=== PATIENT | male | born 1945 | race Caucasian/White ===

== ENCOUNTER 2022-01-09 10:30 | Inpatient (IN) | payer OTHER ==
[2022-01-09] MEDS ORDERED: LEVALBUTEROL 1.25 MG/3 ML NEB ONE (10:48)
[2022-01-09] MEDS ORDERED: METOPROLOL TARTRATE 5 MG/5 ML INJ IV ONE (10:49)
[2022-01-09 11:00] LABS: Absolute Lymphocytes (CBC) 0.9 K/uL (0.7-4.9); Hematocrit 38.6 % (39.6-49.0); Lymphocytes % 11.2 % (15.3-44.8); MCV 89.6 fL (80-100); MPV 8.6 fL (7.6-11.3); RBC Red Blood Cell Count 4.31 M/uL (4.33-5.43)
[2022-01-09 11:18] LABS: Potassium 4.5 mmol/L (3.5-5.1); Troponin High Sensitivity 25.3 pg/mL (<58.9)
[2022-01-09] MEDS ORDERED: HYDRALAZINE HCL 20 MG/ML VIAL ONE ×2 (11:22→12:34)
--- NOTE | 2022-01-09 12:11 | RAD REPORT ---
EXAM DESCRIPTION: [facility] Single View01/09/2022 11:00 am CLINICAL HISTORY: Shortness of breath COMPARISON: none FINDINGS: The lungs appear clear of acute infiltrate. The heart is borderline enlarged IMPRESSION: No acute abnormalities displayed
--- NOTE | 2022-01-09 13:17 | ER ---
Nurse's Notes [facility] Name: Jignesh Cortes Age: 76 yrs Sex: Male : 1945 Arrival Date: 01/09/2022 Time: 10:32 Bed 2 Private MD: Diagnosis: Hypertensive heart disease without heart failure;Shortness of breath;Tachycardia, unspecified;Dyspnea;Tachypnea, not elsewhere classified Presentation: 01/09 10:30 Chief complaint: EMS states: toned out to [place] clinic for hypertension and SOB that has tp1 been ongoing for 3 weeks. Reports new onset of AFIB. BP 222/146, HR 90-110. reports PT has not seen a doctor in a year. 10:30 Coronavirus screen: Vaccine status: Patient reports being unvaccinated. Ebola Screen: tp1 Patient negative for fever greater than or equal to 101.5 degrees Fahrenheit, and additional compatible Ebola Virus Disease symptoms Patient denies exposure to infectious person. Patient denies travel to an Ebola-affected area in the 21 days before illness onset. Initial Sepsis Screen: Does the patient meet any 2 criteria? RR > 20 per min. HR > 90 bpm. Yes Does the patient have a suspected source of infection? No. Patient's initial sepsis screen is negative. Risk Assessment: Do you want to hurt yourself or someone else? Patient reports no desire to harm self or others. Onset of symptoms was January 09, 2022. 10:30 Method Of Arrival: EMS: [facility] tp1 10:30 Acuity: LELO 2 tp1 Triage Assessment: 10:30 General: Appears in no apparent distress. comfortable, Behavior is calm, cooperative. tp1 Pain: Denies pain. EENT: No signs and/or symptoms were reported regarding the EENT system. Neuro: Level of Consciousness is awake, alert, obeys commands, Oriented to person, place, time, situation. Cardiovascular: Reports headache, feeling clammy Denies chest pain, blurred vision Patient's skin is warm and dry. Respiratory: Reports shortness of breath at rest Airway is patent Respiratory effort is even, unlabored, Respiratory pattern is regular, symmetrical, Onset: The symptoms/episode began/occurred the past 3 weeks. GI: Reports diarrhea, Patient currently denies constipation, nausea, vomiting. : No signs and/or symptoms were reported regarding the genitourinary system. Derm: Skin is pink, warm \T\ dry. Rash noted that is red, on right ankle. Musculoskeletal: Circulation, motion, and sensation intact. Historical: - Allergies: 11:23 PENICILLINS; tp1 - Home Meds: 11:23 Lisinopril Oral [Active]; Atenolol Oral [Active]; Procardia Oral [Active]; tp1 11:48 carboxymethylcellulose-citric acid oral [Active]; tp1 11:48 Aspirin Oral [Active]; tp1 - PMHx: 11:23 Hypertensive disorder; tp1 11:43 BPH; Depressive disorder; hypokalemia; psoriasis; Sleep apnea; tp1 11:45 ADHD; erectile dysfunction; insomnia; actinic keratosis; rhythmic movement disorder; tp1 hyperlipidemia; - Immunization history:: Client reports having NOT received the Covid vaccine. - Social history:: Smoking status: Patient denies any tobacco usage or history of. Screenin:33 Abuse screen: Denies threats or abuse. Denies injuries from another. Nutritional tp1 screening: No deficits noted. Tuberculosis screening: No symptoms or risk factors identified. Fall Risk No fall in past 12 months (0 pts). No secondary diagnosis (0 pts). IV access (20 points). Ambulatory Aid- None/Bed Rest/Nurse Assist (0 pts). Gait- Normal/Bed Rest/Wheelchair (0 pts) Mental Status- Oriented to own ability (0 pts). Total Puri Fall Scale indicates No Risk (0-24 pts). Assessment: 10:30 General: see triage notes. tp1 11:30 Reassessment: Patient appears in no apparent distress at this time. No changes from tp1 previously documented assessment. Patient is alert, oriented x 3, equal unlabored respirations, skin warm/dry/pink. Patient denies pain at this time. 12:30 Reassessment: Patient appears in no apparent distress at this time. No changes from tp1 previously documented assessment. Patient is alert, oriented x 3, equal unlabored respirations, skin warm/dry/pink. Patient denies pain at this time. 13:30 Reassessment: Patient appears in no apparent distress at this time. No changes from tp1 previously documented assessment. Patient is alert, oriented x 3, equal unlabored respirations, skin warm/dry/pink. 13:53 Reassessment: ambulated PT in room. PT became clammy, SOB, and nauseated, with tp1 increased respirations. O2 dropped to 93%, HR 125. provider notified. 14:53 Reassessment: Patient appears in no apparent distress at this time. No changes from tp1 previously documented assessment. Patient is alert, oriented x 3, equal unlabored respirations, skin warm/dry/pink. Patient denies pain at this time. 15:53 Reassessment: Patient appears in no apparent distress at this time. No changes from tp1 previously documented assessment. Patient is alert, oriented x 3, equal unlabored respirations, skin warm/dry/pink. resting in bed Patient denies pain at this time. 16:53 Reassessment: Patient appears in no apparent distress at this time. No changes from tp1 previously documented assessment. Patient is alert, oriented x 3, equal unlabored respirations, skin warm/dry/pink. denies chest pain Patient denies pain at this time. 17:39 Reassessment: attempted to give report. tp1 18:14 Reassessment: attempted to give report. no answer. tp1 Vital Signs: 10:30 BP 194 / 139; Pulse 95; Resp 25; Temp 98.9; Pulse Ox 99% on R/A; Weight 87.54 kg; tp1 Height 5 ft. 6 in. (167.64 cm); 10:49 BP 240 / 107; Pulse 92; Resp 18; Pulse Ox 99% on R/A; tp1 10:55 BP 204 / 102; Pulse 92; tp1 11:00 BP 208 / 109; Pulse 83; tp1 11:05 BP 228 / 99; Pulse 82; tp1 11:10 BP 209 / 102; Pulse 82; tp1 11:15 BP 209 / 90; Pulse 80; tp1 11:25 BP 149 / 94; Pulse 89; tp1 11:37 BP 174 / 106; Pulse 105; tp1 11:59 BP 207 / 90; Pulse 97; Resp 18; Pulse Ox 99% on R/A; tp1 12:33 BP 193 / 108; Pulse 95 RA; tp1 12:33 BP 179 / 113 LA; tp1 12:38 BP 141 / 89; Pulse 83; tp1 12:51 BP 156 / 78; Pulse 100; tp1 13:30 BP 125 / 108; Pulse 105 RA; tp1 13:33 BP 124 / 94 RA; Pulse 105; tp1 13:39 BP 151 / 90; Pulse 106 LA; tp1 13:57 BP 186 / 99; Pulse 121; Resp 26; Pulse Ox 96% on R/A; tp1 14:00 BP 154 / 100; Pulse 108; Pulse Ox 98% on R/A; tp1 14:45 BP 170 / 107; Pulse 105; Resp 21; Pulse Ox 96% on R/A; tp1 14:53 BP 138 / 87; Pulse 121; Resp 20; Temp 99.0(O); Pulse Ox 97% on R/A; tp1 15:15 BP 169 / 107; Pulse 113; Resp 20; Pulse Ox 96% on R/A; tp1 16:15 BP 164 / 99; Pulse 120; Resp 20; Pulse Ox 96% on R/A; tp1 16:45 BP 200 / 169; Pulse 103; Resp 20; Pulse Ox 95% on R/A; tp1 17:15 BP 172 / 110; Pulse 117; Resp 20; Pulse Ox 95% on R/A; tp1 18:21 BP 159 / 105; Pulse 104; Resp 22; Pulse Ox 96% on R/A; tp1 10:30 Body Mass Index 31.15 (87.54 kg, 167.64 cm) tp1 ED Course: 10:30 Arm band placed on. tp1 10:30 Patient has correct armband on for positive identification. Bed in low position. Call tp1 light in reach. Side rails up X2. Client placed on continuous cardiac and pulse oximetry monitoring. NIBP monitoring applied. 10:32 Patient arrived in ED. eb 10:35 Tyler Langston MD is Attending Physician. kdr 10:46 Eufemia Smith, FREDERIC is Primary Nurse. tp1 10:46 Maintain EMS IV. Dressing intact. Good blood return noted. Site clean \T\ dry. Gauge \T\ ap 3 site: 22g right forearm. 10:47 EKG done, by ED staff, reviewed by Tyler Langston MD. ap3 10:47 Initial lab(s) drawn, by ED staff. tp1 11:02 XRAY Chest (1 view) In Process Unspecified. EDMS 11:23 Triage completed. tp1 14:07 transfer initiated with [facility]. eb 14:34 CT Chest For PE Angio In Process Unspecified. EDMS 14:37 Inserted saline lock: 22 gauge in right antecubital area, using aseptic technique. tp1 ,using aseptic technique. completed by Julia check grader. 14:45 COVID swab sent to lab. tp1 14:52 per Mee from the [facility]/ they will have to decline the patient in eb transfer due to the facility being at capacity/. 16:29 Fede Hooper MD is Hospitalizing Provider. kdr 17:38 No provider procedures requiring assistance completed. tp1 19:03 Primary Nurse role handed off by Eufemia Smith RN tw5 19:03 Eufemia Powell is Primary Nurse. tw5 20:00 Patient admitted, IV remains in place. tw5 Administered Medications: 10:48 Drug: Xopenex (levalbuterol) (3) 1.25 mg Route: Inhalation; tp1 11:15 Follow up: Response: Marked relief of symptoms tp1 10:49 Drug: Lopressor (metoprolol) 5 mg Route: IVP; Site: right antecubital; tp1 10:55 Drug: Lopressor (metoprolol) 5 mg Route: IVP; Site: right antecubital; tp1 11:00 Drug: Lopressor (metoprolol) 5 mg Route: IVP; Site: right antecubital; tp1 11:40 Follow up: Response: Blood pressure is unchanged tp1 11:15 Drug: hydrALAZINE 10 mg Route: IVP; Site: right antecubital; tp1 11:40 Follow up: Response: Blood pressure is unchanged tp1 12:35 Drug: hydrALAZINE 20 mg Route: IVP; Site: right antecubital; tp1 13:41 Follow up: Response: Blood pressure is lowered tp1 16:39 Drug: Lopressor (metoprolol TARTRATE) 50 mg Route: PO; tp1 17:38 Follow up: Response: Blood pressure is lowered tp1 Medication: 17:38 VIS not applicable for this client. tp1 Outcome: 13:17 Discharge ordered by . kdr 14:02 ER care complete, transfer ordered by . kdr 16:31 Decision to Hospitalize by Provider. kdr 19:58 Admitted to Med/surg room 412, Report called to attempted to call report. Spoke to tw5 chastity she stated she would find out from charge who was getting the patient. They stated they would call back, all nurses are busy 19:58 Condition: stable 19:58 Instructed on the need for admit. 20:06 Admitted to Med/surg Report called to Gave report to Melissa lock 20:22 Patient left the ED. tw5 Signatures: Dispatcher [facility] Tyler Ceron MD MD kdr Prokisch, Amanda, RN RN ap3 Dianne Gupta Tiffany tw5 Eufemia Smith, RN RN tp1 Corrections: (The following items were deleted from the chart) 13:56 13:53 Reassessment: ambulated PT in room. PT became clammy, SOB, and nauseated, with tp1 increased respirations. provider notified. tp1 20:01 19:58 Admitted to Med/surg room 412, Report called to attempted to call report. Spoke tw5 to [facility] she stated she would find out from charge who was getting the patient. Placed on hold for 4 min. tw5
--- NOTE | 2022-01-09 13:17 | EDPHYS ---
Physician Documentation [facility] Name: Jignesh Cortes Age: 76 yrs Sex: Male : 1945 Arrival Date: 01/09/2022 Time: 10:32 Bed 2 Private MD: ED Physician Tyler Langston HPI: 01/09 10:41 This 76 yrs old Male presents to ER via Unassigned with complaints of Hypertensive kdr heart disease poorly controlled. 10:41 Patient states that he went to the [facility] this morning because he was having kdr difficulty breathing for the last 3 weeks. When they assessed him, they found that his vital signs were abnormal, specifically he was hypertensive with a systolic blood pressure in the 220s. He was subsequently sent to the ED for evaluation. On arrival in the ED, his systolic blood pressure is 194. He denies any chest pain. He has been short of breath for about 3 to weeks but has had no other symptoms. He is otherwise asymptomatic with regard to his pressure. He states is that he has been taking his medications as directed except for his Procardia which she has been out of for a few weeks. Patient is none toxic appearing and does not require acute intervention.. Onset: The symptoms/episode began/occurred gradually, at an unknown time. Severity of symptoms: At their worst the symptoms were moderate severe in the emergency department the symptoms are unchanged Pain is currently a 0 / 10. The patient has not experienced similar symptoms in the past. The patient has been recently seen by a physician: the patient's primary care provider. Historical: - Allergies: 11:23 PENICILLINS; tp1 - Home Meds: 11:23 Lisinopril Oral [Active]; Atenolol Oral [Active]; Procardia Oral [Active]; tp1 11:48 carboxymethylcellulose-citric acid oral [Active]; tp1 11:48 Aspirin Oral [Active]; tp1 - PMHx: 11:23 Hypertensive disorder; tp1 11:43 BPH; Depressive disorder; hypokalemia; psoriasis; Sleep apnea; tp1 11:45 ADHD; erectile dysfunction; insomnia; actinic keratosis; rhythmic movement disorder; tp1 hyperlipidemia; - Immunization history:: Client reports having NOT received the Covid vaccine. - Social history:: Smoking status: Patient denies any tobacco usage or history of. ROS: 10:41 Constitutional: Negative for fever, chills, and weight loss, Eyes: Negative for injury, kdr pain, redness, and discharge, ENT: Negative for injury, pain, and discharge, Neck: Negative for injury, pain, and swelling, Cardiovascular: Negative for chest pain, palpitations, and edema, Abdomen/GI: Negative for abdominal pain, nausea, vomiting, diarrhea, and constipation, Back: Negative for injury and pain, : Negative for injury, bleeding, discharge, and swelling, MS/Extremity: Negative for injury and deformity, Skin: Negative for injury, rash, and discoloration, Neuro: Negative for headache, weakness, numbness, tingling, and seizure activity. Psych: Negative for depression, anxiety, suicide ideation, homicidal ideation, and hallucinations, Allergy/Immunology: Negative for hives, rash, and allergies, Endocrine: Negative for neck swelling, polydipsia, polyuria, polyphagia, and marked weight changes, Hematologic/Lymphatic: Negative for swollen nodes, abnormal bleeding, and unusual bruising. 10:41 Respiratory: Positive for shortness of breath, Negative for cough, dyspnea on exertion, hemoptysis, orthopnea, pleurisy, sputum production, wheezing. Exam: 10:41 Constitutional: This is a well developed, well nourished patient who is awake, alert, kdr and in no acute distress. Head/Face: Normocephalic, atraumatic. Eyes: Pupils equal round and reactive to light, extra-ocular motions intact. Lids and lashes normal. Conjunctiva and sclera are non-icteric and not injected. Cornea within normal limits. Periorbital areas with no swelling, redness, or edema. Neck: Trachea midline, no thyromegaly or masses palpated, and no cervical lymphadenopathy. Supple, full range of motion without nuchal rigidity, or vertebral point tenderness. No Meningismus. Chest/axilla: Normal chest wall appearance and motion. Nontender with no deformity. No lesions are appreciated. Cardiovascular: Regular rate and rhythm with a normal S1 and S2. No gallops, murmurs, or rubs. Normal PMI, no JVD. No pulse deficits. Abdomen/GI: Soft, non-tender, with normal bowel sounds. No distension or tympany. No guarding or rebound. No evidence of tenderness throughout. Back: No spinal tenderness. No costovertebral tenderness. Full range of motion. Skin: Warm, dry with normal turgor. Normal color with no rashes, no lesions, and no evidence of cellulitis. MS/ Extremity: Pulses equal, no cyanosis. Neurovascular intact. Full, normal range of motion. Neuro: Awake and alert, GCS 15, oriented to person, place, time, and situation. Cranial nerves II-XII grossly intact. Motor strength 5/5 in all extremities. Sensory grossly intact. Cerebellar exam normal. Normal gait. Psych: Awake, alert, with orientation to person, place and time. Behavior, mood, and affect are within normal limits. 10:41 Respiratory: the patient does not display signs of respiratory distress, Respirations: normal, Breath sounds: wheezing: expiratory that is mild, is heard diffusely. 11:17 ECG was reviewed by the Attending Physician. kdr Vital Signs: 10:30 BP 194 / 139; Pulse 95; Resp 25; Temp 98.9; Pulse Ox 99% on R/A; Weight 87.54 kg; tp1 Height 5 ft. 6 in. (167.64 cm); 10:49 BP 240 / 107; Pulse 92; Resp 18; Pulse Ox 99% on R/A; tp1 10:55 BP 204 / 102; Pulse 92; tp1 11:00 BP 208 / 109; Pulse 83; tp1 11:05 BP 228 / 99; Pulse 82; tp1 11:10 BP 209 / 102; Pulse 82; tp1 11:15 BP 209 / 90; Pulse 80; tp1 11:25 BP 149 / 94; Pulse 89; tp1 11:37 BP 174 / 106; Pulse 105; tp1 11:59 BP 207 / 90; Pulse 97; Resp 18; Pulse Ox 99% on R/A; tp1 12:33 BP 193 / 108; Pulse 95 RA; tp1 12:33 BP 179 / 113 LA; tp1 12:38 BP 141 / 89; Pulse 83; tp1 12:51 BP 156 / 78; Pulse 100; tp1 13:30 BP 125 / 108; Pulse 105 RA; tp1 13:33 BP 124 / 94 RA; Pulse 105; tp1 13:39 BP 151 / 90; Pulse 106 LA; tp1 13:57 BP 186 / 99; Pulse 121; Resp 26; Pulse Ox 96% on R/A; tp1 14:00 BP 154 / 100; Pulse 108; Pulse Ox 98% on R/A; tp1 14:45 BP 170 / 107; Pulse 105; Resp 21; Pulse Ox 96% on R/A; tp1 14:53 BP 138 / 87; Pulse 121; Resp 20; Temp 99.0(O); Pulse Ox 97% on R/A; tp1 15:15 BP 169 / 107; Pulse 113; Resp 20; Pulse Ox 96% on R/A; tp1 16:15 BP 164 / 99; Pulse 120; Resp 20; Pulse Ox 96% on R/A; tp1 16:45 BP 200 / 169; Pulse 103; Resp 20; Pulse Ox 95% on R/A; tp1 17:15 BP 172 / 110; Pulse 117; Resp 20; Pulse Ox 95% on R/A; tp1 18:21 BP 159 / 105; Pulse 104; Resp 22; Pulse Ox 96% on R/A; tp1 10:30 Body Mass Index 31.15 (87.54 kg, 167.64 cm) tp1 MDM: 13:17 Patient medically screened. kdr 13:19 Data reviewed: vital signs, nurses notes, lab test result(s), radiologic studies. kdr Counseling: I had a detailed discussion with the patient and/or guardian regarding: the historical points, exam findings, and any diagnostic results supporting the discharge/admit diagnosis, lab results, radiology results, the need for outpatient follow up. 14:03 ED course: All the patient's blood pressure had improved with the interventions given, kdr the patient remained labile in terms of his heart rate. Any exertion including talking would make him more tachycardic. When he was ambulated in the room his saturations dropped to 93% and his heart rate went to 125. Patient is very stoic and is not admitting readily to any discomfort or shortness of breath however his vital signs remain labile at rest and with movement and exercise. Clearly he will need to be admitted for further evaluation. I will evaluate his chest for possible PE as we are arranging for admission either here or at the [place]. Patient otherwise is stable and not requiring any immediate intervention at this time. 01/09 10:36 Order name: Basic Metabolic Panel; Complete Time: 12:08 kdr 01/09 10:36 Order name: CBC with Diff; Complete Time: 11:12 kdr 01/09 10:36 Order name: NT PRO-BNP; Complete Time: 12:08 [facility] 01/09 10:36 Order name: Troponin HS; Complete Time: 12:08 kdr 01/09 14:08 Order name: SARS RAPID; Complete Time: 16:23 eb 01/09 17:05 Order name: CBC with Automated Diff [facility] 01/09 10:36 Order name: XRAY Chest (1 view); Complete Time: 13:14 kdr 01/09 13:58 Order name: CT Chest For PE Angio; Complete Time: 16:23 kdr 01/09 17:05 Order name: Comprehensive Metabolic Panel [facility] 01/09 10:36 Order name: EKG; Complete Time: 10:37 kdr 01/09 10:36 Order name: Cardiac monitoring; Complete Time: 10:47 [facility] 01/09 10:36 Order name: EKG - Nurse/Tech; Complete Time: 10:47 [facility] 01/09 10:36 Order name: IV Saline Lock; Complete Time: 10:47 kdr 01/09 10:36 Order name: Labs collected and sent; Complete Time: 10:47 [facility] 01/09 10:36 Order name: O2 Per Protocol; Complete Time: 10:46 [facility] 01/09 10:36 Order name: O2 Sat Monitoring; Complete Time: 10:46 [facility] 01/09 17:05 Order name: Regular [facility] EC:17 Rate is 99 beats/min. Rhythm is regular, A fib with No ectopy. QRS [place] is Normal. [place] kdr interval is normal. QRS interval is normal. QT interval is normal. Clinical impression: Atrial Fibrillation. Administered Medications: 10:48 Drug: Xopenex (levalbuterol) (3) 1.25 mg Route: Inhalation; tp1 11:15 Follow up: Response: Marked relief of symptoms tp1 10:49 Drug: Lopressor (metoprolol) 5 mg Route: IVP; Site: right antecubital; tp1 10:55 Drug: Lopressor (metoprolol) 5 mg Route: IVP; Site: right antecubital; tp1 11:00 Drug: Lopressor (metoprolol) 5 mg Route: IVP; Site: right antecubital; tp1 11:40 Follow up: Response: Blood pressure is unchanged tp1 11:15 Drug: hydrALAZINE 10 mg Route: IVP; Site: right antecubital; tp1 11:40 Follow up: Response: Blood pressure is unchanged tp1 12:35 Drug: hydrALAZINE 20 mg Route: IVP; Site: right antecubital; tp1 13:41 Follow up: Response: Blood pressure is lowered tp1 16:39 Drug: Lopressor (metoprolol TARTRATE) 50 mg Route: PO; tp1 17:38 Follow up: Response: Blood pressure is lowered tp1 Disposition Summary: 01/09/22 16:31 Hospitalization Ordered Hospitalization Status: Observation kdr Provider: Fede Hooper Location: Telemetry/MedSurg (observation)(01/09/22 16:31) kdr Condition: Fair(01/09/22 16:31) kdr Problem: new(01/09/22 16:31) kdr Symptoms: have improved(01/09/22 16:31) kdr Bed/Room Type: Standard kdr Room Assignment: [facility](01/09/22 17:26) dw Diagnosis - Hypertensive heart disease without heart failure(01/09/22 16:31) kdr - Shortness of breath(01/09/22 16:31) kdr - Tachycardia, unspecified(01/09/22 16:31) kdr - Dyspnea kdr - Tachypnea, not elsewhere classified kdr Forms: - Medication Reconciliation Form kdr - SBAR form kdr Signatures: Dispatcher [employer] EDAlysa Lorenz RN RN dw Tyler Langston MD MD kdr Eufemia Smith RN RN tp1 Corrections: (The following items were deleted from the chart) 14:00 13:17 Home kdr kdr 14:00 13:17 an acute exacerbation kdr kdr 14:00 13:17 have improved kdr kdr 14:00 13:17 Stable kdr kdr 14:00 13:17 Hypertensive heart disease without heart failure kdr kdr 14:00 13:17 Renal insufficiency kdr kdr 16:29 14:02 [place] [facility] kdr kdr 16:29 14:02 [facility] kdr kdr 16:29 14:02 Higher level of care kdr kdr 16:29 14:02 Fair kdr kdr 16:29 14:02 new kdr kdr 16:29 14:02 have improved kdr kdr 16:29 14:02 Shortness of breath kdr kdr 16:29 14:02 Hypertensive heart disease without heart failure kdr kdr 16:29 14:02 Exertional tachycardia kdr kdr 16:29 14:02 Exertional dyspnea kdr kdr 16:29 14:02 Tachycardia, unspecified - Persistent and recurrent kdr kdr 16:29 14:02 Renal insufficiency kdr kdr 17: 16:31 kdr dw
--- NOTE | 2022-01-09 15:00 | RAD REPORT ---
EXAM DESCRIPTION: CT - Chest For Pe Angio - 01/09/2022 2:32 pm CLINICAL HISTORY: Shortness of breath, hypertension COMPARISON: Chest Single View dated 01/09/2022 TECHNIQUE: Dynamically enhanced 3 mm thick images of the chest were obtained during administration o f approximately 150mL Isovue 370 IV contrast. Coronal and oblique MIP reconstruction images were gene rated and reviewed. Exam utilizes a protocol to evaluate the pulmonary arterial tree. All CT scans are performed using dose optimization technique as appropriate and may include automated exposure control or mA/KV adjustment according to patient size. FINDINGS: No pulmonary emboli are identified. The aorta as imaged shows no acute or suspicious finding. No pericardial thickening or effusion. Left ventricular wall myocardium appears thickened though CT imaging is limited in sensitivity to evaluat e myocardial hypertrophy. No pericardial thickening or effusion. No peripheral mass consolidation. Bronchial wall thickening is present throughout both lung [place]. T here are scattered areas of mild interstitial opacification. Small right-side and small to moderate l eft-side pleural effusion. No pneumothorax. No pleural based mass. No mediastinal or hilar suspicious masses. No chest wall masses or abnormal axillary lymphadenopathy. IMPRESSION: No pulmonary emboli identified. Bronchitis/viral infiltrate pattern to the bronchi and interstitium. Small right-side and small to moderate size left-sided pleural effusion. Left ventricular wall myocardium appears slightly thickened though CT imaging sensitivity is limited.
[2022-01-09 15:14] LABS: SARS-CoV-2 Antigen Rapid Res Negative (Negative)
[2022-01-09] MEDS ORDERED: METOPROLOL TAR 50 MG TAB ONE (16:46)
--- NOTE | 2022-01-09 17:07 | P.HP ---
Certification for Inpatient Patient admitted to: Observation With expected LOS: <2 Midnights Practitioner: I am a practitioner with admitting privileges, knowledge of patient current condition, hospital course, and medical plan of care. Services: Services provided to patient in accordance with Admission requirements found in Title 42 Section 412.3 of the Code of Federal Regulations Patient History Date of Service: 01/09/22 Reason for admission: HTN and SOB History of Present Illness: Patient is 76 years of age admitted with severe hypertension and shortness of breath. He is been short of breath for the past year became worse over the past week complaining of wheezing chest congestion the former smoker quit in the . History of hypertension chronic renal insufficiency patient has been compliant with his medication except PROCARDIA denies any chest pain. - Past Medical/Surgical History -: HTN Review of Systems 10-point ROS is otherwise unremarkable Physical Examination - Physical Exam General: Alert, Oriented x3, Mild distress HEENT: Atraumatic Neck: Supple Respiratory: Clear to auscultation bilaterally Cardiovascular: No edema, Regular rate/rhythm, Normal S1 S2 Gastrointestinal: Normal bowel sounds, Soft and benign - Studies Laboratory Data (last 24 hrs) 01/09/22 10:43: WBC 7.80, Hgb 12.8 L, Hct 38.6 L, Plt Count 288 01/09/22 10:43: Sodium 138, Potassium 4.5, BUN 20 H, Creatinine 1.55 H, Glucose 120 H Assessment and Plan - Problems (Diagnosis) (1) HTN (hypertension) Current Visit: Yes Status: Acute Plan: Patient is 76 years of age admitted with severe hypertension associated with the shortness of breath is mine chronic renal insufficiency labs reviewed chest x- rays clear CT scan shows nonspecific changes BMPs elevated. Plan to admit the patient to the hospital for observation resume is all medications at a low dose Lasix probably has underlying diastolic dysfunction Qualifiers: Hypertension type: primary hypertension Qualified Code(s): I10 - Essential (primary) hypertension Discharge Plan: Home - Advance Directives Does patient have a Living Will: No Does patient have a Durable POA for Healthcare: No
[2022-01-09] MEDS ORDERED: FUROSEMIDE 20 MG/ 2ML VIAL IV ONE (18:00)
[2022-01-09] MEDS ORDERED: AMLODIPINE 5 MG TAB PO SCH (18:00)
[2022-01-09] MEDS: METOPROLOL TAR 25 MG TAB PO SCH (18:00)
[2022-01-09] MEDS: lisinopriL 20 MG TAB PO SCH (18:00)
[2022-01-09] MEDS ORDERED: AMLODIPINE 5 MG TAB ONE (18:35)
[2022-01-09] MEDS ORDERED: FUROSEMIDE 20 MG/ 2ML VIAL ONE (18:35)
[2022-01-09] MEDS ORDERED: lisinopriL 20 MG TAB ONE (18:35)
[2022-01-09] MEDS ORDERED: METOPROLOL TAR 25 MG TAB ONE (18:35)
[2022-01-09] MEDS ORDERED: ONDANSETRON 4 MG/2 ML VIAL IV PRN (20:43)
[2022-01-09] MEDS ORDERED: ACETAMINOPHEN 325 MG TABLET PO PRN (20:43)
[2022-01-09 21:45] VITALS: BMI 29.9
[2022-01-09] MEDS ORDERED: ASPIRIN EC 81 MG TAB PO ONE (23:06)
[2022-01-09] MEDS: ENOXAPARIN 80 MG/0.8 ML SQ SCH (23:21)
[2022-01-10] MEDS: ALBUTEROL 2.5 MG/3 ML NEB SOL NEB SCH ×2 (00:55→08:00)
[2022-01-10] MEDS: METOPROLOL TAR 25 MG TAB PO SCH ×2 (05:36→17:44)
[2022-01-10 05:38] LABS: Absolute Lymphocytes (CBC) 1.3 K/uL (0.7-4.9); Hematocrit 37.9 % (39.6-49.0); Lymphocytes % 16.8 % (15.3-44.8); MCV 89.6 fL (80-100); MPV 8.8 fL (7.6-11.3); RBC Red Blood Cell Count 4.23 M/uL (4.33-5.43)
[2022-01-10 05:53] LABS: Albumin 3.3 g/dL (3.4-5.0); Potassium 4.2 mmol/L (3.5-5.1); Protein, Total 7.5 g/dL (6.4-8.2)
[2022-01-10 06:01] LABS: Magnesium 2.3 mg/dL (1.8-2.4); Thyroid Stimulating Hormone 1.95 uIU/mL (0.360-3.740)
[2022-01-10 06:05] LABS: Troponin High Sensitivity 92.7 pg/mL (<58.9)
[2022-01-10] MEDS: FUROSEMIDE 40 MG TABLET PO SCH (08:50)
[2022-01-10] MEDS: ENOXAPARIN 80 MG/0.8 ML SQ SCH ×2 (08:51→20:28)
[2022-01-10] MEDS: lisinopriL 20 MG TAB PO SCH (08:51)
[2022-01-10] MEDS: AMLODIPINE 10 MG TAB PO SCH (08:56)
--- NOTE | 2022-01-10 09:27 | P.PN ---
Subjective Date of Service: 01/10/22 Chief Complaint: HTN and SOB Subjective: Improving (Patient's shortness of breath is improving although he still continues to remain very hypertensive with underlying chronic renal failure bone is elevated patient is in A. fib) Review of Systems Unremarkable Respiratory: Shortness of Breath Physical Examination - Vital Signs Temperature: 96.6 F Blood Pressure: 197/88 Pulse: 60 Respirations: 16 Pulse Ox (%): 96 - Physical Exam General: Alert, In no apparent distress, Oriented x3 Respiratory: Clear to auscultation bilaterally Cardiovascular: No edema, Irregular heart rate/rhythm Gastrointestinal: Normal bowel sounds, Soft and benign - Studies Laboratory Data (last 24 hrs) 01/09/22 10:43: WBC 7.80, Hgb 12.8 L, Hct 38.6 L, Plt Count 288 01/09/22 10:43: Sodium 138, Potassium 4.5, BUN 20 H, Creatinine 1.55 H, Glucose 120 H Assessment And Plan - Current Problems (Diagnosis) (1) HTN (hypertension) Current Visit: Yes Status: Acute Plan: Patient has severe hypertension sinew with present medication increase amlodipine to 10 mg a day phone is elevated most likely underlying diastolic failure Qualifiers: Hypertension type: primary hypertension Qualified Code(s): I10 - Essential (primary) hypertension (2) Atrial fibrillation Current Visit: Yes Status: Acute Plan: Patient is anticoagulated to be seen by cardiology echocardiogram is pending continue with Lasix Qualifiers: Atrial fibrillation type: unspecified Qualified Code(s): I48.91 - Unspecified atrial fibrillation
[2022-01-10] MEDS: VENLAFAXINE HCL XR 75 MG CAP PO SCH (11:48)
--- NOTE | 2022-01-10 15:27 | CON ---
Date of Consultation: 01/10/2022 Reason For Consultation: Shortness of breath and chest pain and elevated troponin. History Of Present Illness: A 76-year-old male with severe hypertension, presented with significantl y elevated blood pressure and shortness of breath with some chest pressure that has been worsening ov er the past week along with chest congestion. Since hospitalization, he feels better. Symptoms have resolved and no significant shortness of breath or orthopnea. Past Medical History: Hypertension. Medications: Refer to reconciliation sheet for detailed list. Allergies: PENICILLIN. Family History: No premature coronary artery disease or cancer. Social History: Ex-smoker. Does not drink or use any drugs. Review of Systems: All systems reviewed and they were negative except for what in mentioned HPI. Physical Examination: Vital Signs: His temperature is 97.3, heart rate 70, breathing at 18, blood pressure 142/81, saturat ing 97%. General: Pleasant elderly male, no apparent distress. Head and Neck: Pupils are equal, reactive to light. Intact eye movements. No JVD. No cervical lym phadenopathy. Neck is supple. Thyroid is not enlarged. Lungs: Clear to auscultation bilaterally. No rhonchi, wheezing, or crackles. No accessory muscle u se. Heart: Regular rate and rhythm. No extra sounds. Abdomen: Soft, nontender. Bowel sounds positive. No organomegaly. No masses or hernia. No rigidi ty or rebound. Extremities: No edema, clubbing or cyanosis. Intact pulses. Skin: No rash. Neurologic: Alert, awake, oriented x3. No acute focal deficits appreciated. Investigations: Troponin went up from 25 to 92. Creatinine is 1.55. Assessment And Recommendations: 1.Elevated troponin. This could be due to demand as his blood pressure is severely elevated; howeve r, has significant risk factors. Please trend 1 more set of troponin to assure that it is trending d own and since the patient's symptoms resolved, if his blood pressure gets controlled, then from my pe rspective, the patient can be worked up as an outpatient with stress test and an echo, which I will b e arranging for. 2.Hypertension. Started on metoprolol, amlodipine, lisinopril as well as Lasix and his blood pressu re is better. We will monitor. 3.Acute on chronic heart failure, unknown ejection fraction. Agree with Lasix and we will obtain an echocardiogram once feasible. SR/MODL Voice ID: [id number] Report ID: [id number]
[2022-01-10] MEDS: HYDRALAZINE HCL 20 MG/ML VIAL IV PRN (20:28)
[2022-01-11] MEDS: HYDRALAZINE HCL 20 MG/ML VIAL IV PRN (04:54)
[2022-01-11] MEDS: METOPROLOL TAR 25 MG TAB PO SCH (05:51)
[2022-01-11] MEDS: AMLODIPINE 10 MG TAB PO SCH (09:20)
[2022-01-11] MEDS: ENOXAPARIN 80 MG/0.8 ML SQ SCH ×2 (09:20→20:38)
[2022-01-11] MEDS: FUROSEMIDE 40 MG TABLET PO SCH (09:21)
[2022-01-11] MEDS: VENLAFAXINE HCL XR 75 MG CAP PO SCH (09:21)
[2022-01-11] MEDS: lisinopriL 20 MG TAB PO SCH (09:21)
--- NOTE | 2022-01-11 12:01 | P.DS ---
Admission Date: 01/09/22 Discharge Date: 01/11/22 Disposition: ROUTINE DISCHARGE Discharge Condition: FAIR Reason for Admission: HTN and SOB - Problems (1) HTN (hypertension) Current Visit: Yes Status: Acute Qualifiers: Hypertension type: primary hypertension Qualified Code(s): I10 - Essential (primary) hypertension (2) Atrial fibrillation Current Visit: Yes Status: Acute Qualifiers: Atrial fibrillation type: unspecified Qualified Code(s): I48.91 - Unspecified atrial fibrillation Brief History of Present Illness: Patient is 76 years of age admitted with severe hypertension and shortness of breath. He is been short of breath for the past year became worse over the past week complaining of wheezing chest congestion the former smoker quit in the 1980s. History of hypertension chronic renal insufficiency patient has been compliant with his medication except PROCARDIA denies any chest pain. Hospital Course: Patient is 76 years of age admitted with uncontrolled hypertension that was controlled with medication stick losartan and atenolol at home and discontinued Procardia also developed atrial fibrillation have underlying heart failure he was treated with IV diuretics and did well at time of discharge he was alert oriented responsive cooperative chest clear vital signs stable blood pressure controlled mornings had declined seen by Dr. Case the hvac manager Patient was discharged with Kristopher Gunn to follow-up with cardiology in outpatient stress test his troponins were initially elevated SPECT is from heart failure and the 1 prior to discharge was less than before has mild chronic kidney insufficiency Vital Signs/Physical Exam: Temp Pulse Resp BP Pulse Ox 97.4 F 129 H 16 136/65 95 01/11/22 08:00 01/11/22 09:21 01/11/22 08:00 01/11/22 09:21 01/11/22 08:00 Laboratory Data at Discharge: WBC 7.50 K/uL (4.3-10.9) 01/10/22 05:08 Hgb 12.6 g/dL (13.6-17.9) L 01/10/22 05:08 Hct 37.9 % (39.6-49.0) L 01/10/22 05:08 Plt Count 275 K/uL (152-406) 01/10/22 05:08 Sodium 137 mmol/L (136-145) 01/10/22 05:08 Potassium 4.2 mmol/L (3.5-5.1) 01/10/22 05:08 BUN 24 mg/dL (7-18) H 01/10/22 05:08 Creatinine 1.55 mg/dL (0.55-1.3) H 01/10/22 05:08 Glucose 93 mg/dL (74-106) 01/10/22 05:08 Magnesium 2.3 mg/dL (1.8-2.4) 01/10/22 05:08 Total Bilirubin 1.0 mg/dL (0.2-1.0) 01/10/22 05:08 AST 21 U/L (15-37) 01/10/22 05:08 ALT 32 U/L (12-78) 01/10/22 05:08 Alkaline Phosphatase 126 U/L (45-117) H 01/10/22 05:08 Triglycerides 137 mg/dL (<150) 01/10/22 05:08 Cholesterol 173 mg/dL (<200) 01/10/22 05:08 HDL Cholesterol 31 mg/dL (40-60) L 01/10/22 05:08 Cholesterol/HDL Ratio 5.58 01/10/22 05:08 Home Medications: Venlafaxine HCl *Xr* [Effexor XR] 75 mg PO DAILY 01/10/22 Apixaban [Eliquis] 5 mg PO BID #60 tablet 01/11/22 Furosemide [Lasix] 20 mg PO DAILY #30 01/11/22 Nifedipine [Procardia Xl] 30 mg PO DAILY #30 01/11/22 New Medications: Apixaban [Eliquis] 5 mg PO BID #60 tablet Furosemide [Lasix] 20 mg PO DAILY #30 Nifedipine [Procardia Xl] 30 mg PO DAILY #30 Physician Discharge Instructions: Patient to resume atenolol and losartan fax in a prescription for Procardia XL and diuretics/please verify that the patient has atenolol and losartan at home check with the pharmacy if the Eliquis is covered was you can give him a coupon for 1 month Diet: Regular Followup: NONE,NONE [Primary Care Provider] - Martir Case MD [ACTIVE - CAN ADMIT] -
[2022-01-11] MEDS ORDERED: METOPROLOL TAR 25 MG TAB PO ONE (12:50)
--- NOTE | 2022-01-11 14:01 | PN ---
Date of Progress Note: 01/11/2022 Subjective: Seen by bedside. He is doing well, asymptomatic; however, heart rate is running in the 130 range. The patient was on atenolol. Apparently, this was discontinued during his hospital stay. Review of Systems: No chest pain, shortness of breath, orthopnea, or cough. No nausea, vomiting, diarrhea. No abdomina l pain. No dysuria, polyuria, or urinary urgency. All other systems reviewed and they were negative . Physical Examination: Vital Signs: Reviewed. Head and Neck: Pupils are equal, reactive to light. Intact eye movements. No JVD. No cervical lym phadenopathy. Neck is supple. Thyroid is not enlarged. Lungs: Decreased breathing sounds bilaterally. No accessory muscle use or muscle retraction. Heart: Regular rate and rhythm. No extra sounds. Abdomen: Soft, nontender. Bowel sounds positive. No organomegaly. No masses or hernia. No rigidi ty or rebound. Extremities: No clubbing or cyanosis. Intact pulses. Skin: No rash. Neurologic: Alert, awake. No acute focal deficits appreciated. Investigations: Labs were reviewed. Assessment And Recommendations: 1.Paroxysmal atrial fibrillation. He is in sinus tachycardia. Recommend to increase beta-miguel a s the patient was on a good dose of atenolol and also the patient's CHADS-VASc score is elevated, so he will require anticoagulation. Recommend a low-dose Eliquis 2.5 mg twice a day as his kidney funct ion is now normal. 2.Elevated troponin. This is demand ischemia. No further inpatient workup is required; however, outpatient stress test is recommended. 3.Chronic diastolic heart failure. Continue Lasix. SR/MODL Voice ID: [id number] Report ID: [id number]
--- NOTE | 2022-01-11 17:57 | P.PN ---
Date of Service: 01/11/22 (Addendum) Patient was supposed to be discharged today however he developed some tachycardia seen by cardiology still has some shortness of breath patient is [facility] patient may not be able to get his medication so he was kept on for another day controlled his heart rate metoprolol was also increased to 50 mg twice a day he also complained of shortness of breath have added some Dulera is back in normal sinus rhythm was in A. fib his heart rate is controlled can be discharged home
[2022-01-11] MEDS: METOPROLOL TAR 50 MG TAB PO SCH (18:40)
[2022-01-11] MEDS: DULERA 200/5 (MOMETASONE/FORMOTEROL) INHALER IH SCH (20:36)
[2022-01-12] MEDS: HYDRALAZINE HCL 20 MG/ML VIAL IV PRN (00:52)
[2022-01-12] MEDS: METOPROLOL TAR 50 MG TAB PO SCH (06:00)
[2022-01-12] MEDS ORDERED: atenoloL 25 MG TAB PO SCH (06:03)
[2022-01-12] MEDS: DULERA 200/5 (MOMETASONE/FORMOTEROL) INHALER IH SCH ×2 (10:02→21:00)
[2022-01-12] MEDS: ENOXAPARIN 80 MG/0.8 ML SQ SCH ×2 (10:03→21:23)
[2022-01-12] MEDS: lisinopriL 20 MG TAB PO SCH (10:03)
[2022-01-12] MEDS: AMLODIPINE 10 MG TAB PO SCH (10:03)
[2022-01-12] MEDS: FUROSEMIDE 40 MG TABLET PO SCH (10:03)
[2022-01-12] MEDS: VENLAFAXINE HCL XR 75 MG CAP PO SCH (10:03)
--- NOTE | 2022-01-12 10:23 | EKG ---
Test Date: 2022-01-09 Test Time: 10:37:27 Home Health Aide: ALP MEASUREMENT RESULTS: Intervals: Rate: 99 WI: QRSD: 72 QT: 346 QTc: 444 [place]: P: WI: QRS: 65 T: 71 INTERPRETIVE STATEMENTS: Atrial fibrillation Abnormal ECG No previous ECG available for comparison Electronically Signed On 01-12-22 10:20:15 CDT by Jose Luis Foote
--- NOTE | 2022-01-12 12:17 | PN ---
Date of Progress Note: 01/12/2022 Mr. Cortes is 76. He was admitted with chronic diastolic congestive heart failure, paroxysmal atrial fibrillation. Beta-blockers have been increased. He is on Eliquis. His troponin was elevated seco ndary to demand ischemia. He remains in atrial fibrillation and flutter, rate 100 to 130. He has fa iled metoprolol, failed atenolol. He is on inhalers, Lasix Norvasc, aspirin, Lovenox, hydralazine, a nd lisinopril. His blood pressure is better controlled. I think we should put him on sotalol 80 b.i .d. instead of the metoprolol and atenolol. Case was discussed with Dr. Alberts. I think if he does n ot convert with sotalol, he may need a cardioversion as an outpatient. He needs to receive at least 3 doses of sotalol to make sure his QT does not get prolonged before he goes home. KIMBERLYN/ALON Voice ID: [id number] Report ID: [id number]
--- NOTE | 2022-01-12 14:18 | ECHO ---
HEIGHT: 5 ft 6 in WEIGHT: 185 lb 3.2 oz DATE OF STUDY: 01/12/[address]: Chrissy Doyle 2-DIMENSIONAL: YES M.MODE: YES DOPPLER: YES COLOR FLOW: YES TDS: YES PORTABLE: YES DEFINITY: BUBBLE STUDY: DIAGNOSIS: HYPERTENSION CARDIAC HISTORY: CATHERIZATION: NO SURGERY: NO PROSTHETIC VALVE: NO PACEMAKER: NO MEASUREMENTS (cm) DIASTOLIC (NORMALS) SYSTOLIC (NORMALS) IVSd 1.3 (0.6-1.2) LA Diam (1.9-4.0) LVEF % LVIDd 2.6 (3.5-5.7) LVIDs 1.9 (2.0-3.5) %FS 26% LVPWd 1.3 (0.6-1.2) Ao Diam 2.4 (2.0-3.7) 2 DIMENSIONAL ASSESSMENT: NOT WELL SEEN RIGHT ATRIUM: LEFT ATRIUM: RIGHT VENTRICLE: LEFT VENTRICLE: TRICUSPID VALVE: MITRAL VALVE: PULMONIC VALVE: AORTIC VALVE: PERICARDIAL EFFUSION: AORTIC ROOT: LEFT VENTRICULAR WALL MOTION: DOPPLER/COLOR FLOW: COMMENTS: VERY POOR WINDOWS. LEFT VENTRICULAR EJECTION FRACTON APPEARS NORMAL BUT STUDY IS VERY LIMITED AND RECOMMENT CONTRAST ECHOCARDIOGRAM. MILD TRICUSPID REGURGITATION. TECHNOLOGIST: CHRISTA ASTUDILLO
--- NOTE | 2022-01-12 17:25 | P.PN ---
Subjective Date of Service: 01/12/22 Chief Complaint: HTN and SOB Overnight, he went back into atrial flutter with RVR with heart rates in the 120s-130s. He was switched back to his home atenolol following discussion with Dr. Case. This morning, he was seen on rounds alongside Dr. Foote, who recommended switching him from atenolol to sotalol. Review of Systems 10-point ROS is otherwise unremarkable Cardiovascular: Palpitations Physical Examination - Vital Signs Temperature: 97.4 F Blood Pressure: 158/76 Pulse: 48 Respirations: 18 Pulse Ox (%): 99 - Physical Exam General: Alert, In no apparent distress, Oriented x3 HEENT: Atraumatic, PERRLA, Mucous membr. moist/pink, EOMI, Sclerae nonicteric Neck: Supple, JVD not distended Respiratory: Clear to auscultation bilaterally, Normal air movement Cardiovascular: No edema, No gallops, No rubs, No murmurs, Irregular heart rate/rhythm Gastrointestinal: Normal bowel sounds, Soft and benign, Non-distended, No tenderness, No rebound, No guarding Musculoskeletal: No clubbing Integumentary: No rashes Neurological: Normal speech, Cranial nerves 3-12 intact, Normal affect Assessment And Plan - Plan # Paroxysmal Atrial Fibrillation/Flutter with Rapid Ventricular Response His [id number] = 2 (HTN=1, Age 65-74=1), which warrants anticoagulation. - Cardiology consulted and spoke with Dr. Foote - recommendations appreciated - For rate control: - Started on sotalol - For anticoagulation: - Started on enoxaparin, plan to switch to apixaban at discharge # Hypertensive Emergency Complicated by Type II NSTEMI (Demand Ischemia) - improved - Blood pressure reached as high as 240/107 on 01/09/2022 - Trop trend: 25.3 -> 78.7 -> 92.7 -> 56.7 - Cardiology consulted and Dr. Foote following - recommendations appreciated - TTE with poor windows - repeat ordered # Elevated Creatinine - Acute Kidney Injury on Chronic Kidney Disease Stage III - Creatinine = 1.55 (baseline creatinine unknown) - Urinalysis = pending - Monitor creatinine and urine output - If worsening, obtain renal ultrasound - Renally dose medications Sanya Alberts M.D. Discharge Plan: Home Plan to discharge in: 24 Hours
[2022-01-12] MEDS: SOTALOL HCL 80 MG TAB PO SCH (19:22)
[2022-01-12 19:50] LABS: Urine Bilirubin Negative (Negative); Urine Blood Negative (Negative); Urine Clarity Clear (Clear); Urine Color Yellow (Yellow); Urine Glucose Negative (Negative); Urine Protein Trace (Negative); Urine pH 5.5 (5.0-7.0)
[2022-01-12 20:48] LABS: Urine Bacteria <20 /HPF (<20); Urine RBC <5 /HPF (None Seen)
[2022-01-13] MEDS: SOTALOL HCL 80 MG TAB PO SCH ×2 (06:14→17:47)
--- NOTE | 2022-01-13 07:32 | P.DS ---
Admission Date: 01/09/22 Discharge Date: 01/13/22 Disposition: ROUTINE DISCHARGE Discharge Condition: GOOD Reason for Admission: HTN and SOB Vital Signs/Physical Exam: Temp Pulse Resp BP Pulse Ox 97.4 F 78 19 147/67 H 99 01/13/22 04:00 01/13/22 04:00 01/13/22 04:00 01/13/22 04:00 01/13/22 04:00 Laboratory Data at Discharge: WBC 7.50 K/uL (4.3-10.9) 01/10/22 05:08 Hgb 12.6 g/dL (13.6-17.9) L 01/10/22 05:08 Hct 37.9 % (39.6-49.0) L 01/10/22 05:08 Plt Count 275 K/uL (152-406) 01/10/22 05:08 Sodium 137 mmol/L (136-145) 01/10/22 05:08 Potassium 4.2 mmol/L (3.5-5.1) 01/10/22 05:08 BUN 24 mg/dL (7-18) H 01/10/22 05:08 Creatinine 1.55 mg/dL (0.55-1.3) H 01/10/22 05:08 Glucose 93 mg/dL (74-106) 01/10/22 05:08 Magnesium 2.3 mg/dL (1.8-2.4) 01/10/22 05:08 Total Bilirubin 1.0 mg/dL (0.2-1.0) 01/10/22 05:08 AST 21 U/L (15-37) 01/10/22 05:08 ALT 32 U/L (12-78) 01/10/22 05:08 Alkaline Phosphatase 126 U/L (45-117) H 01/10/22 05:08 Triglycerides 137 mg/dL (<150) 01/10/22 05:08 Cholesterol 173 mg/dL (<200) 01/10/22 05:08 HDL Cholesterol 31 mg/dL (40-60) L 01/10/22 05:08 Cholesterol/HDL Ratio 5.58 01/10/22 05:08 Home Medications: Venlafaxine HCl *Xr* [Effexor XR] 75 mg PO DAILY 01/10/22 Apixaban [Eliquis] 5 mg PO BID #60 tab 01/11/22 Amlodipine [Norvasc*] 10 mg PO DAILY #30 tab 01/13/22 Furosemide [Lasix*] 40 mg PO DAILY #30 tab 01/13/22 Sotalol HCl [Betapace*] 80 mg PO BID 6AM 6PM #60 tab 01/13/22 lisinopriL [Prinivil*] 20 mg PO DAILY #30 tab 01/13/22 New Medications: Sotalol HCl [Betapace*] 80 mg PO BID 6AM 6PM #60 tab Apixaban [Eliquis] 5 mg PO BID #60 tab Furosemide [Lasix*] 40 mg PO DAILY #30 tab Amlodipine [Norvasc*] 10 mg PO DAILY #30 tab lisinopriL [Prinivil*] 20 mg PO DAILY #30 tab Physician Discharge Instructions: 1. Please schedule a follow-up appointment with your PCP in 3-5 days 2. Please schedule a follow-up appointment with Cardiology (Dr. Foote) in 5-7 days Please start taking sotalol 80 mg two times per day. Please completely discontinue your home atenolol Diet: Low sodium Activity: Ad alannah Followup: NONE,NONE [Primary Care Provider] - Martir Case MD [ACTIVE - CAN ADMIT] -
[2022-01-13] MEDS: VENLAFAXINE HCL XR 75 MG CAP PO SCH (08:05)
[2022-01-13] MEDS: ENOXAPARIN 80 MG/0.8 ML SQ SCH ×2 (08:05→21:30)
[2022-01-13] MEDS: AMLODIPINE 10 MG TAB PO SCH (08:05)
[2022-01-13] MEDS: HYDRALAZINE HCL 20 MG/ML VIAL IV PRN (08:05)
[2022-01-13] MEDS: lisinopriL 20 MG TAB PO SCH (08:07)
[2022-01-13] MEDS: FUROSEMIDE 40 MG TABLET PO SCH (08:07)
[2022-01-13] MEDS: DULERA 200/5 (MOMETASONE/FORMOTEROL) INHALER IH SCH ×2 (09:00→21:00)
--- NOTE | 2022-01-13 23:14 | P.PN ---
Subjective Date of Service: 01/13/22 Chief Complaint: HTN and SOB Initially, planned for discharge this morning. However, he reverted back into atrial fibrillation with RVR. He was symptomatic with chest pain and palpitations. Discharge was cancelled and Dr. Foote notified. Sotalol increased from 80 mg to 120 mg BID. Review of Systems 10-point ROS is otherwise unremarkable Respiratory: Shortness of Breath Cardiovascular: Chest Pain, Palpitations Physical Examination - Vital Signs Temperature: 97.8 F Blood Pressure: 136/102 Pulse: 118 Respirations: 19 Pulse Ox (%): 98 Assessment And Plan - Plan - Physical Exam General: Alert, In no apparent distress, Oriented x3 HEENT: Atraumatic, PERRLA, Mucous membr. moist/pink, EOMI, Sclerae nonicteric Neck: Supple, JVD not distended Respiratory: Clear to auscultation bilaterally, Normal air movement Cardiovascular: No edema, No gallops, No rubs, No murmurs, Irregular heart rate/rhythm Gastrointestinal: Normal bowel sounds, Soft and benign, Non-distended, No tenderness, No rebound, No guarding Musculoskeletal: No clubbing Integumentary: No rashes Neurological: Normal speech, Cranial nerves 3-12 intact, Normal affect # Paroxysmal Atrial Fibrillation/Flutter with Rapid Ventricular Response His [id number] = 2 (HTN=1, Age 65-74=1), which warrants anticoagulation. - Cardiology consulted and spoke with Dr. Foote - recommendations appreciated - For rate control: - Started on sotalol - increased from 80 mg to 120 mg BID - For anticoagulation: - Started on enoxaparin, plan to switch to apixaban at discharge # Hypertensive Emergency Complicated by Type II NSTEMI (Demand Ischemia) - improved - Blood pressure reached as high as 240/107 on 01/09/2022 - Trop trend: 25.3 -> 78.7 -> 92.7 -> 56.7 - Cardiology consulted and Dr. Foote following - recommendations appreciated - TTE with poor windows - repeat ordered # Elevated Creatinine - Acute Kidney Injury on Chronic Kidney Disease Stage III - Creatinine = 1.55 (baseline creatinine unknown) - Urinalysis = trace protein - Monitor creatinine and urine output - If worsening, obtain renal ultrasound - Renally dose medications Sanya Alberts M.D. Discharge Plan: Home Plan to discharge in: 24 Hours
[2022-01-13] MEDS ORDERED: SOTALOL HCL 80 MG TAB PO ONE (23:27)
[2022-01-14] MEDS: SOTALOL HCL 80 MG TAB PO SCH ×2 (06:23→17:00)
[2022-01-14] MEDS: DULERA 200/5 (MOMETASONE/FORMOTEROL) INHALER IH SCH ×2 (09:00→20:50)
[2022-01-14] MEDS: ENOXAPARIN 80 MG/0.8 ML SQ SCH ×2 (09:19→20:50)
[2022-01-14] MEDS: FUROSEMIDE 40 MG TABLET PO SCH (09:19)
[2022-01-14] MEDS: VENLAFAXINE HCL XR 75 MG CAP PO SCH (09:19)
[2022-01-14] MEDS: AMLODIPINE 10 MG TAB PO SCH (09:20)
[2022-01-14] MEDS: lisinopriL 20 MG TAB PO SCH (09:20)
[2022-01-14 11:10] VITALS: O2SAT 96
--- NOTE | 2022-01-14 18:29 | EKG ---
Test Date: 2022-01-13 Test Time: 23:35:31 Travel Registered Nurse Icu: CHULA MEASUREMENT RESULTS: Intervals: Rate: 103 [place]: QRSD: 74 QT: 366 QTc: 479 [place]: P: [place]: QRS: 64 T: 29 INTERPRETIVE STATEMENTS: Atrial fibrillation with rapid ventricular response Nonspecific ST abnormality, probably digitalis effect Abnormal ECG Compared to ECG 01/09/2022 10:37:27 ST (T wave) deviation now present Electronically Signed On 01-14-22 18:28:05 CDT by Jose Luis Foote
--- NOTE | 2022-01-14 23:23 | P.PN ---
Subjective Date of Service: 01/14/22 Chief Complaint: HTN and SOB This morning, he continues to have intermittent episodes of tachycardia and RVR. He states that these episodes are symptomatic and he will experience chest pain and palpitations during the episodes. Review of Systems 10-point ROS is otherwise unremarkable Cardiovascular: Chest Pain, Palpitations Physical Examination - Vital Signs Temperature: 97.0 F Blood Pressure: 140/86 Pulse: 115 Respirations: 18 Pulse Ox (%): 96 Assessment And Plan - Plan - Physical Exam General: Alert, In no apparent distress, Oriented x3 HEENT: Atraumatic, PERRLA, Mucous membr. moist/pink, EOMI, Sclerae nonicteric Neck: Supple, JVD not distended Respiratory: Clear to auscultation bilaterally, Normal air movement Cardiovascular: No edema, No gallops, No rubs, No murmurs, Irregular heart rate/rhythm Gastrointestinal: Normal bowel sounds, Soft and benign, Non-distended, No tenderness, No rebound, No guarding Musculoskeletal: No clubbing Integumentary: No rashes Neurological: Normal speech, Cranial nerves 3-12 intact, Normal affect # Paroxysmal Atrial Fibrillation/Flutter with Rapid Ventricular Response His [id number] = 2 (HTN=1, Age 65-74=1), which warrants anticoagulation. - Cardiology consulted and spoke with Dr. Foote - recommendations appreciated - For rate control: - Continue sotalol at 120 mg BID and monitor for today - If he has persistent RVR or tachycardia, plan to start digoxin - For anticoagulation: - Started on enoxaparin, plan to switch to apixaban at discharge # Hypertensive Emergency Complicated by Type II NSTEMI (Demand Ischemia) - improved - Blood pressure reached as high as 240/107 on 01/09/2022 - Trop trend: 25.3 -> 78.7 -> 92.7 -> 56.7 - Cardiology consulted and Dr. Foote following - recommendations appreciated - TTE with poor windows - repeat ordered # Elevated Creatinine - Acute Kidney Injury on Chronic Kidney Disease Stage III - Creatinine = 1.55 (baseline creatinine unknown) - Urinalysis = trace protein - Monitor creatinine and urine output - If worsening, obtain renal ultrasound - Renally dose medications Sanya Alberts M.D.
[2022-01-14] MEDS ORDERED: SOTALOL HCL 80 MG TAB PO ONE (23:24)
[2022-01-15] MEDS: HYDRALAZINE HCL 20 MG/ML VIAL IV PRN (00:13)
--- NOTE | 2022-01-15 02:48 | PN ---
Date of Progress Note: 01/13/2022 Mr. Cortes has a history of hypertension; diastolic congestive heart failure that is chronic diastoli c, that is stable; paroxysmal atrial fibrillation, on beta-blockers and Eliquis. Came in with elevat ed troponin secondary to demand ischemia. We decided because of his atrial fibrillation to put him o n sotalol 80 mg b.i.d. He is also on Lovenox, Lasix, hydralazine, lisinopril. He continued to be in atrial fibrillation. Has received only 2 doses of sotalol so far. He needs his blood pressure bett er controlled. We should consider increasing lisinopril dose, increasing hydralazine. We will put h im on p.o. hydralazine, consider other antihypertensive therapy. I will discuss the case further wit h his primary care physician. We will eventually consider direct current cardioversion on him. He n eeds to be on anticoagulation obviously. KIMBERLYN/ALON Voice ID: [id number] Report ID: [id number]
--- NOTE | 2022-01-15 02:53 | PN ---
Date of Progress Note: 01/14/2022 History Of Present Illness: Mr. Cortes has a history of hypertension, poorly controlled chronic ozuna tolic congestive heart failure, paroxysmal atrial fibrillation. He remains in atrial flutter despite use of sotalol 80 mg b.i.d. His rate is fairly well controlled at about 98. His blood pressure has improved. He continues to be on lisinopril, sotalol, furosemide, Lovenox, amlodipine. Again, I do not have any plan to do any cardioversion on him at this point, but would plan to do that as an outpa tient once he is ready to go home. KIMBERLYN/ALON Voice ID: [id number] Report ID: [id number]
[2022-01-15] MEDS ORDERED: SOTALOL HCL 80 MG TAB PO SCH (06:00)
[2022-01-15] MEDS: ENOXAPARIN 80 MG/0.8 ML SQ SCH (08:09)
[2022-01-15] MEDS: VENLAFAXINE HCL XR 75 MG CAP PO SCH (08:10)
[2022-01-15] MEDS: FUROSEMIDE 40 MG TABLET PO SCH (08:10)
[2022-01-15] MEDS: lisinopriL 20 MG TAB PO SCH (08:13)
[2022-01-15] MEDS: DULERA 200/5 (MOMETASONE/FORMOTEROL) INHALER IH SCH (08:13)
[2022-01-15] MEDS: AMLODIPINE 10 MG TAB PO SCH (08:13)
[2022-01-15 08:14] VITALS: BP 155/80
[2022-01-15 08:51] VITALS: TEMP 97.3
--- NOTE | 2022-01-15 16:56 | P.DS ---
Admission Date: 01/09/22 Discharge Date: 01/15/22 Disposition: ROUTINE DISCHARGE Discharge Condition: GOOD Reason for Admission: HTN and SOB Consultations: 1. Cardiology Hospital Course: DIAGNOSES: # Paroxysmal Atrial Fibrillation/Flutter with Rapid Ventricular Response # Hypertensive Emergency Complicated by Type II NSTEMI (Demand Ischemia) - improved # Elevated Creatinine - Acute Kidney Injury vs Chronic Kidney Disease Stage III HOSPITAL COURSE: Mr. Jignesh Cortes is a pleasant 76 year old male with a past medical history significant for atrial fibrillation, chronic kidney disease stage III, and hypertension who was admitted to the [facility] on 01/09/2022 for severe hypertension. He was admitted to the Medicine service for further evaluation. Upon further evaluation, he was found to have a slight uptrending in his troponin levels and was diagnosed with a type II NSTEMI (demand ischemia). Cardiology was consulted and he was evaluated by Dr. Foote. His blood pressure was treated and his troponin down-trended. Discharge was anticipated earlier this week; however, he developed atrial fibrillation/flutter with rapid ventricular response. Initially, we tried to manage his symptoms with metoprolol followed by atenolol, but these medications were unsuccessful. He was then started on sotalol and titrated up to 120 mg twice daily, with significant improvement of his symptoms. He was seen by Dr. Foote earlier today and cleared for discharge home. Dr. Foote will schedule him for a follow-up appointment sometime next week. On 01/15/2022, he was seen on morning rounds and deemed medically stable for discharge. He was discharged with instructions to schedule follow-up appointments with his PCP in 3-5 days and with Cardiology (Dr. Foote) in 5-7 days. He was provided prescriptions for sotalol, apixaban, furosemide, lisinopril, and amlodipine. He was given the opportunity to ask questions and reported no further questions. Furthermore, all questions were answered to the best of my ability. Today, I personally spent 20 minutes on his case, of which greater than 50% of the time was spent in patient education, counseling, and coordination of care as described above. - Physical Exam General: Alert, In no apparent distress, Oriented x3 HEENT: Atraumatic, PERRLA, Mucous membr. moist/pink, EOMI, Sclerae nonicteric Neck: Supple, JVD not distended Respiratory: Clear to auscultation bilaterally, Normal air movement Cardiovascular: No edema, No gallops, No rubs, No murmurs, Irregular heart rate/rhythm Gastrointestinal: Normal bowel sounds, Soft and benign, Non-distended, No tenderness, No rebound, No guarding Musculoskeletal: No clubbing Integumentary: No rashes Neurological: Normal speech, Cranial nerves 3-12 intact, Normal affect Vital Signs/Physical Exam: Temp Pulse Resp BP Pulse Ox 97.3 F 80 18 155/80 H 100 01/15/22 08:00 01/15/22 08:13 01/15/22 08:00 01/15/22 08:13 01/15/22 08:00 Laboratory Data at Discharge: WBC 7.50 K/uL (4.3-10.9) 01/10/22 05:08 Hgb 12.6 g/dL (13.6-17.9) L 01/10/22 05:08 Hct 37.9 % (39.6-49.0) L 01/10/22 05:08 Plt Count 275 K/uL (152-406) 01/10/22 05:08 Sodium 137 mmol/L (136-145) 01/10/22 05:08 Potassium 4.2 mmol/L (3.5-5.1) 01/10/22 05:08 BUN 24 mg/dL (7-18) H 01/10/22 05:08 Creatinine 1.55 mg/dL (0.55-1.3) H 01/10/22 05:08 Glucose 93 mg/dL (74-106) 01/10/22 05:08 Magnesium 2.3 mg/dL (1.8-2.4) 01/10/22 05:08 Total Bilirubin 1.0 mg/dL (0.2-1.0) 01/10/22 05:08 AST 21 U/L (15-37) 01/10/22 05:08 ALT 32 U/L (12-78) 01/10/22 05:08 Alkaline Phosphatase 126 U/L (45-117) H 01/10/22 05:08 Triglycerides 137 mg/dL (<150) 01/10/22 05:08 Cholesterol 173 mg/dL (<200) 01/10/22 05:08 HDL Cholesterol 31 mg/dL (40-60) L 01/10/22 05:08 Cholesterol/HDL Ratio 5.58 01/10/22 05:08 Home Medications: Venlafaxine HCl *Xr* [Effexor XR] 75 mg PO DAILY 01/10/22 Apixaban [Eliquis] 5 mg PO BID #60 tab 01/11/22 Amlodipine [Norvasc*] 10 mg PO DAILY #30 tab 01/13/22 Furosemide [Lasix*] 40 mg PO DAILY #30 tab 01/13/22 lisinopriL [Prinivil*] 20 mg PO DAILY #30 tab 01/13/22 Sotalol HCl [Sotalol] 120 mg PO BID #60 tab 01/15/22 New Medications: Apixaban [Eliquis] 5 mg PO BID #60 tab Furosemide [Lasix*] 40 mg PO DAILY #30 tab Amlodipine [Norvasc*] 10 mg PO DAILY #30 tab lisinopriL [Prinivil*] 20 mg PO DAILY #30 tab Sotalol HCl [Sotalol] 120 mg PO BID #60 tab Physician Discharge Instructions: 1. Please schedule a follow-up appointment with your PCP in 3-5 days 2. Please schedule a follow-up appointment with Cardiology (Dr. Foote) in 5-7 days Please start taking sotalol 120 mg two times per day. Please completely discontinue your home atenolol Diet: Low sodium Activity: Ad alannah Followup: Jose Luis Foote MD [ACTIVE - CAN ADMIT] - (Call to schedule appointment.)
== END 2022-01-15 10:25 | disposition home or self-care (01) | DRG 304 ==
LOC: ER 10:30 → EDBD 10:30 → OBSVTOIN 17:03 → ERHOLD 17:03 → 4TH 17:35
PROVIDERS: ADMIT Internal Medicine Sleep Medicine; ATTEND Internal Medicine Sleep Medicine
DX: I16.1 Hypertensive emergency (principal); I50.33 Acute on chronic diastolic (congestive) heart failure; I24.8 Other forms of acute ischemic heart disease; I48.92 Unspecified atrial flutter; I13.0 Hypertensive heart and chronic kidney disease with heart failure and stage 1 through stage 4 chronic kidney disease, or unspecified chronic kidney disease; I48.0 Paroxysmal atrial fibrillation; N18.30 Chronic kidney disease, stage 3 unspecified; Z87.891 Personal history of nicotine dependence; Z88.0 Allergy status to penicillin; Z20.822 Contact with and (suspected) exposure to COVID-19
CPT/HCPCS: 36415; 71045; 71275; 80048; 80053; 80061; 81001; 83735; 83880; 84443; 84484; 85025; 87811; 93005; 93306; 94640; 94760; 96374; 96375; 99285; J0360; J1940; J3535; J7614; Q9967